=== PATIENT | female | born 1980 | race Caucasian/White ===

== ENCOUNTER 2017-02-06 10:30 | Day surgery (SDC) | payer MEDICAID ==
[~2017-02-06 10:30] MED LIST: Buffered Lidocaine 0.9% SYRIN* 5 ML/SYR SYRINGE INTRADERM ONE; Morphine INJ* 2 MG/ML 1 ML SYRINGE IV PRN; PROCHLORPERAZINE INJ 5 MG/ML 2 ML VIAL IV PRN; Scopolamine 1.5 mg* PATCH TRANSDERM PRN; ceFAZolin 2 GM PREMIX (*) 100 ML IVPB ONE; fentaNYL* 50 MCG/ML 2 ML VIAL (100 MCG VIAL) IV PRN; oxyCODONE/Acetamin 5/325 MG* TAB PO PRN
[2017-02-06] MEDS ORDERED: KETAMINE HCL* 50 MG/ML 10 ML VIAL ONE ×2 (10:38)
[2017-02-06] MEDS ORDERED: Midazolam* 1 MG/ML 5 ML VIAL (5 MG) ONE ×2 (10:38)
[2017-02-06] MEDS ORDERED: fentaNYL* 50 MCG/ML 2 ML VIAL (100 MCG VIAL) ONE ×4 (10:38→12:23)
[2017-02-06] MEDS ORDERED: Buffered Lidocaine 0.9% SYRIN* 5 ML/SYR SYRINGE ONE ×2 (10:51)
[2017-02-06 11:32] LABS: Hematocrit 40 % (35-47); Mean Corpuscular HGB Conc 35 g/dl (31-36); Mean Corpuscular Hemoglobin 32 pg (27-31); Mean Corpuscular Volume 92 fL (80-97); Mean Platelet Volume 8 um3 (7.4-10.4); Red Blood Count 4.35 10^6/ul (4.0-5.4); Red Cell Distribution Width 13 % (10.5-15); White Blood Count 11.6 10^3/ul (3.5-10.8)
[2017-02-06] MEDS ORDERED: Ondansetron INJ* 2 MG/ML VIAL ONE ×2 (12:03)
[2017-02-06] MEDS ORDERED: Lidocaine 2% PF * 5 ML VIAL ONE ×2 (12:03)
[2017-02-06] MEDS ORDERED: Phenylephrine IV* 40 MCG/ML 10 ML SYRINGE ONE ×2 (12:03)
[2017-02-06] MEDS ORDERED: Propofol* 10 MG/ML 20 ML BTL IV PUSH ONE ×2 (12:03→12:30)
[2017-02-06] MEDS ORDERED: Ibuprofen TAB* 600 MG PO PRN (12:13)
[2017-02-06] MEDS ORDERED: PROCHLORPERAZINE INJ 5 MG/ML 2 ML VIAL ONE ×2 (12:34)
[2017-02-06] MEDS ORDERED: Scopolamine 1.5 mg* PATCH ONE ×2 (12:34)
[2017-02-06 15:30] VITALS: BP 102/64
--- NOTE | 2017-02-06 22:34 | OP ---
DATE OF OPERATION: 02/06/17 [facility] DATE OF : 80 SURGEON: Ivette Chi MD ANESTHESIOLOGIST: Dr. Novak. ANESTHESIA: MAC. PRE-OP DIAGNOSIS: Missed at 8 weeks gestation. POST-OP DIAGNOSIS: Missed at 8 weeks gestation. OPERATIVE PROCEDURE: Exam under anesthesia, dilation and vacuum curettage. ESTIMATED BLOOD LOSS: Minimal, less than 20 cc. SPECIMEN: Products of conception. FLUIDS: Per Anesthesia. DRAINS: None. FINDINGS: Eight to ten week size uterus. No adnexal masses were palpated. There were moderate products of conception. COMPLICATIONS: None. COUNTS: Sponge count correct x2. CONDITION: The patient was brought to recovery room, awake and in stable condition. DESCRIPTION OF PROCEDURE: The patient was brought to the operating room. When anesthesia was found to be adequate, the patient was prepped and draped in the usual sterile fashion in the dorsal lithotomy position. Time-out was performed. Exam under anesthesia was done with the above findings noted. Weighted speculum was placed in the vagina. The anterior lip of the cervix was grasped with a single-tooth tenaculum. The cervix was gently and easily dilated with a graduated Suazo dilators to a size 26. The size 8 curved suction curette was gently advanced. The uterus was emptied of its contents. A good uterine cry was felt throughout. The vacuum was removed. The single- tooth tenaculum was removed from the anterior lip of the cervix. There was bleeding from the left tenaculum site. Pressure was held with the polyp forceps. After several minutes, the forceps was removed from the anterior lip of the cervix and excellent hemostasis was noted. All instruments were removed from the vagina. Sponge count was correct x2 and the patient was brought to recovery room awake and in stable condition. [id number]/[facility] #: [id number] [facility]
[2017-02-09] MEDS ORDERED: Scopolomine PATCH Remove* 1 NOTE MISC PATCH OFF ONE (06:02)
== END 2017-02-06 15:28 | disposition home or self-care (01) ==
LOC: OR 10:30
PROVIDERS: ATTEND Obstetrics & Gynecology
DX: O02.1 Missed abortion (principal); E11.9 Type 2 diabetes mellitus without complications; Z79.4 Long term (current) use of insulin
CPT/HCPCS: 36415; 82947; 85025; 86850; 86900; 86901; 88305; A9270-GY; J0690; J0780; J2250; J2405; J2704; J3010

== ENCOUNTER 2017-10-17 16:46 | Emergency (ER) | payer BC, OTHER ==
[2017-10-17 17:26] VITALS: BP 128/79
--- NOTE | 2017-10-17 17:51 | UC ---
Skin Complaint HPI - HPI Summary HPI Summary: Per child development specialist: "Pt presents complaining of right sided rash with pain on right side radiating towards back. Started to notice it on last Friday (10/10), saw PMD on Friday of this week with same complaints. Pt reports PMD didn't look at the rash. Hx of chicken pox." rash under right breast and on right thorax. + d/c. no fevers. + painful. -LMP 1 mo ago, cycles ~5-6 wks. but no kids. - History of Current Complaint Chief Complaint: UCRash Time Seen by Provider: 10/17/17 17:49 Stated Complaint: RT SIDE PAIN W/ RASH Hx Last Menstrual Period: 09/17/17 Pain Intensity: 4 - Allergy/Home Medications Allergies/Adverse Reactions: Allergies Allergy/AdvReac Type Severity Reaction Status Date / Time No Known Allergies Allergy Verified 10/17/17 17:29 Home Medications: Home Medications Albuterol HFA INHALER* [Ventolin HFA Inhaler*] 1 puff INH Q6H PRN 10/17/17 [ History Confirmed 10/17/17] Ibuprofen TAB* [Advil TAB*] 400 mg PO Q6H PRN 10/17/17 [History Confirmed ] Insulin Glargine,Hum.rec.anlog [Basaglar Kwikpen U-100] 56 unit SC DAILY [History Confirmed 10/17/17] Simethicone [Gas-X] 125 mg PO DAILY 10/17/17 [History Confirmed 10/17/17] Review of Systems Constitutional: Negative Skin: Rash Eyes: Negative ENT: Negative Respiratory: Negative Cardiovascular: Negative Gastrointestinal: Negative Genitourinary: Negative Motor: Negative Neurovascular: Negative Musculoskeletal: Negative Neurological: Negative Psychological: Negative Is Patient Immunocompromised?: No All Other Systems Reviewed And Are Negative: Yes PMH/Surg Hx/FS Hx/Imm Hx Previously Healthy: Yes Endocrine History: Diabetes - Surgical History Surgical History: Yes Surgery Procedure, Year, and Place: gallbladder removed approx 2002. D&C - Family History Known Family History: Positive: Hypertension - Social History Alcohol Use: None Substance Use Type: None Smoking Status (MU): Never Smoked Tobacco Physical Exam Triage Information Reviewed: Yes Appearance: Well-Appearing, No Pain Distress, Well-Nourished Vital Signs: Initial Vital Signs Temp 99.1 F 10/17/17 17:16 Pulse 85 10/17/17 17:16 Resp 20 10/17/17 17:16 BP 128/79 10/17/17 17:16 Pulse Ox 97 10/17/17 17:16 Vital Signs Reviewed: Yes Eye Exam: Normal ENT Exam: Normal Neck exam: Normal Respiratory Exam: Normal Respiratory: Positive: Lungs clear Cardiovascular Exam: Normal Cardiovascular: Positive: RRR, No Murmur Abdomen Description: Positive: Nontender, Soft Musculoskeletal Exam: Normal Neurological Exam: Normal Psychological Exam: Normal Skin: Positive: rashes - RUG anad rt low thoracic back with 2 erythematous plaques w/ superimposed vessicles, mostly crusted. no streaks. non-blanching, + tender. Course/Dx - Course Course Of Treatment: urine HCG neg. + shingles. Has passed time interval for anti-viral treatment. discussed variable duratiopn/course but typically 1 month. reassured. -adv to watch blood sugars closely. they haev been slightly elevated but not much she says. - Differential Diagnoses - Skin Complaint Differential Diagnoses: Scabies, Urticaria, Viral Exanthem, Other - shingles - Diagnoses Provider Diagnoses: Shingles Discharge - Sign-Out/Discharge Documenting (check all that apply): Post-Discharge Follow Up - Discharge Plan Condition: Stable Disposition: HOME Patient Education Materials: Shingles (ED) Referrals: Selam ESPINAL,Marilin Deutsch [Primary Care Provider] - 1 Week Additional Instructions: Since the rash started 1 week ago, it is considered too late for the ant-viral medications to be helpful. We talked about the nature and typical course of shingles. You can use advil 800mgs every 8 hrs (max daily dose of 2400mgs) alternating with tylenol for pain. - Billing Disposition and Condition Condition: STABLE Disposition: HOME
== END 2017-10-17 18:13 | disposition home or self-care (01) ==
LOC: UCCORT 16:46
DX: B02.9 Zoster without complications (principal); Z32.02 Encounter for pregnancy test, result negative
CPT/HCPCS: 84702; 99211; G0463